=== PATIENT | male | born 1970 | race Caucasian/White ===

== ENCOUNTER 2022-07-25 23:19 | Emergency (ER) | payer OTHER, MEDICAID, SELFPAY ==
[2022-07-25 23:29] VITALS: BP 128/56; PULSE 92; RESP 18; TEMP 36.7; O2SAT 96; BMI 21.1
--- NOTE | 2022-07-26 04:52 | ED.BACK ---
HPI - Back Pain/Injury General Chief Complaint: Back Pain/Injury Stated Complaint: back pain Time Seen by Provider: 07/26/22 04:51 Source: patient Patient History Social History Smoking Status: Current every day smoker Smoking Status: Current every day smoker tobacco type: cigarettes and vaping Substance Use Type: marijuana Exam Initial Vital Signs Initial Vital Signs: Vital Signs Temperature 98.1 F 07/25/22 23:29 Pulse Rate 92 H 07/25/22 23:29 Respiratory Rate 18 07/25/22 23:29 Blood Pressure 128/56 L 07/25/22 23:29 Pulse Oximetry 96 07/25/22 23:29 Oxygen Delivery Method 07/25/22 23:29 Course Orders Ordered: ED Orders 07/25/22 23:35 Consult to WORKFORCE SPECIALIST - Audio Visual Director Stat Vital Signs Vital signs: Vital Signs - 8 hr 07/25/22 23:29 Temperature 98.1 F Pulse Rate 92 H Respiratory Rate 18 Blood Pressure 128/56 L Pulse Oximetry 96 Oxygen Delivery Method Room Air Discharge Plan Departure Referrals: Javan Saleh MD [Primary Care Provider] -
== END 2022-07-26 07:55 | disposition left against medical advice (07) ==
PROVIDERS: Emergency Provider Emergency Medicine; PCP Family Medicine
CPT/HCPCS: 99281

== ENCOUNTER 2022-07-26 16:49 | Emergency (ER) | payer OTHER, MEDICAID, SELFPAY ==
[2022-07-26 16:58] VITALS: BP 114/59; PULSE 89; RESP 17; TEMP 36.6; O2SAT 97; BMI 22.8
== END 2022-07-26 19:14 | disposition left against medical advice (07) ==
LOC: ED 19:10
PROVIDERS: Emergency Provider Emergency Medicine; PCP Family Medicine
CPT/HCPCS: 99281